=== PATIENT | female | born 1990 ===

== ENCOUNTER → 2023-03-05 15:14 | Outpatient (BNVA) | payer MEDICAID, SELFPAY | PROVIDERS: Referring Provider Nurse Practitioner Family; Visit Provider Physician Assistant | DX: S62.336A Displaced fracture of neck of fifth metacarpal bone, right hand, initial encounter for closed fracture (principal); W10.9XXA Fall (on) (from) unspecified stairs and steps, initial encounter | CPT/HCPCS: 73130 ==

== ENCOUNTER → 2023-03-19 13:41 | Outpatient (BNVA) | payer MEDICAID, SELFPAY | PROVIDERS: Visit Provider Physician Assistant | DX: S62.336D Displaced fracture of neck of fifth metacarpal bone, right hand, subsequent encounter for fracture with routine healing (principal); W10.9XXD Fall (on) (from) unspecified stairs and steps, subsequent encounter | CPT/HCPCS: 73130 ==

== ENCOUNTER 2024-03-10 20:12 | Emergency (ER) | payer MEDICAID, SELFPAY ==
[2024-03-10 20:24] VITALS: BP 113/73; PULSE 74; RESP 14; TEMP 36.7; O2SAT 100
[2024-03-10 20:41] VITALS: BP 134/63; PULSE 70; O2SAT 100
--- NOTE | 2024-03-10 20:43 | PC.NURSE ---
Patient placed in C-collar by this nurse as precaution when placed into patient room from triage.
--- NOTE | 2024-03-10 20:46 | PC.NURSE ---
C-collar applied. Neuro assessment completed, pt denies LOC but has some abrasions on forehead. C/o of nausea. AOx4, pupils 3mm, ROBERT.
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
[2024-03-10] MEDS: ketorolac 30 mg/mL INJ IVP (20:54)
[2024-03-10] MEDS: ondansetron 2 mg/ML SDV 2 mL 4 MG IVP (20:59)
[2024-03-10] MEDS: tetanus-dipt-pertussis 0.5 mL SDV IM (22:00)
[2024-03-10] MEDS: neomycin-poly-bacitracin oint 0.9 gm Pkt 1 APPLIC TOPICAL (22:03)
--- NOTE | 2024-03-10 22:27 | PC.NURSE ---
C-collar removed by Dr Pittman.
--- NOTE | 2024-03-10 22:27 | PC.NURSE ---
Patient sent home with 2 hydrocodone pills, witnessed by charge nurse Clementina NAVARRO. Patient educated to take them as prescribed and directed; pt verbalized understanding to education and had no questions/concerns.
[2024-03-10] MEDS: cephALEXin 500 mg Capsule PO (22:28)
--- NOTE | 2024-03-10 22:28 | PC.NURSE ---
Patient's right elbow and right knee, as well as hand, were cleaned with sterile water, triple antibiotic applied, and wrapped with ABD pad and Coban per verbal instruction of Dr Pittman. Patient's left ankle also wrapped with caitlyn wrap per instruction of Dr Pittman to help reduce swelling and discomfort.
[2024-03-10 22:30] VITALS: BP 129/77; PULSE 88; O2SAT 100
[2024-03-10] MEDS: HYDROcodone-acetaminophen 5-325 mg Tablet 2 TAB PO (23:01)
[2024-03-10 23:42] VITALS: BP 129/77; PULSE 84; O2SAT 100
== END 2024-03-10 23:20 | disposition home or self-care (01) ==
PROVIDERS: Emergency Provider Emergency Medicine; PCP Family Medicine
DX: S93.402A Sprain of unspecified ligament of left ankle, initial encounter (principal); S00.81XA Abrasion of other part of head, initial encounter; S50.311A Abrasion of right elbow, initial encounter; S80.211A Abrasion, right knee, initial encounter; V20.59XA Other motorcycle passenger injured in collision with pedestrian or animal in traffic accident, initial encounter; Z23 Encounter for immunization
CPT/HCPCS: 73080; 73562; 73610; 90471; 90715; 96374; 96375; 99284; J1885; J2405

== ENCOUNTER → 2024-04-01 12:48 | Outpatient (BNVA) | payer MEDICAID, SELFPAY | PROVIDERS: PCP Family Medicine; Visit Provider Podiatrist Foot & Ankle Surgery | DX: S99.912A Unspecified injury of left ankle, initial encounter (principal); S99.922A Unspecified injury of left foot, initial encounter; V29.99XA Rider (driver) (passenger) of other motorcycle injured in unspecified traffic accident, initial encounter; M76.72 Peroneal tendinitis, left leg | CPT/HCPCS: 73610; 73620 ==